=== PATIENT | female | born 1955 | race Caucasian/White ===

== ENCOUNTER → 2019-06-15 | Outpatient (CLI) | payer MEDICARE ==
[2019-06-17 15:07] LABS: HPV 16 Negative (Negative); HPV 18 Negative (Negative); HPV OTHER HR TYPES Negative (Negative)
== END | disposition home or self-care (01) ==
LOC: LAB SHORT 19:02 → LAB 19:02
PROVIDERS: Nurse Practitioner Women's Health
DX: Z12.72 Encounter for screening for malignant neoplasm of vagina (principal); Z91.89 Other specified personal risk factors, not elsewhere classified
CPT/HCPCS: 87624; G0123

== ENCOUNTER 2021-11-04 07:59 | Day surgery (SDC) | payer MEDICARE ==
[~2021-11-04] VITALS: Ht 165.1 cm; Wt 53.6 kg
[~2021-11-04 07:59] MED LIST: Doxycycline Hyc20 MG PO
--- NOTE | 2021-11-04 08:32 | NUR ---
Ambulatory in Day Surgery History, Chart, Medications and Allergies reviewed before start of procedure. Lungs clear T/O to Auscultation. Patient confirms NPO status and agrees with scheduled surgery. Pre-Op teaching done. Pt verbalizes understanding. Patient States Post-Procedure ride home has been arranged.
--- NOTE | 2021-11-04 08:54 | NUR ---
11/04/21 0854 Oumou Dodson History, Chart, Medications and Allergies reviewed before start of procedure. Patient confirms NPO status and agrees with scheduled surgery. 3-LEAD EKG REVIEWED WITH PHYSICIAN PRIOR TO START OF PROCEDURE. MONITOR INTACT WITH CONTINUOUS PULSE OXIMETRY AND INTERMITTENT BP. PATIENT DETERMINED TO BE ASA APPROPRIATE FOR PROPOFOL SEDATION PRIOR TO START OF PROCEDURE BY .
--- NOTE | 2021-11-04 09:57 | NUR ---
PT DISCUSSING FINDINGS WITH THIS RN. HAS GOOD RECOLLECTION OF WHAT MD TOLD HER AT END OF CASE.
--- NOTE | 2021-11-04 10:02 | NUR ---
REVIEWED DC INSTRUCTIONS WITH PT WHO VERBALIZES UNDERSTANDING OF ALL INSTRUCTIONS GIVEN. READY TO GO HOME. NO PAIN, NO NAUSEA.
--- NOTE | 2021-11-04 10:11 | NUR ---
PT DRESSING SELF. STOOD AT EDGE OF BED WITHOUT DIFFICULTY. VSS.
--- NOTE | 2021-11-04 10:11 | NUR ---
IV DC TIP INTACT
--- NOTE | 2021-11-04 10:15 | NUR ---
PT AMBULATED TO BR WITHOUT DIFFICULTY. DC HOME VIA WC WITH PARTNER TO DRIVE HER.
== END 2021-11-04 23:14 | disposition home or self-care (01) ==
LOC: ORSCMMR 07:59 → ORD 09:00 → ORSCMMR 09:00
PROVIDERS: Internal Medicine Gastroenterology
PROC: 0DJD8ZZ Inspection of Lower Intestinal Tract, Via Natural or Artificial Opening Endoscopic (ICD-10-PCS; principal; 2021-11-04 09:00)
DX: Z12.11 Encounter for screening for malignant neoplasm of colon (principal); Z79.899 Other long term (current) drug therapy
CPT/HCPCS: J2250; J2704; J7120

== ENCOUNTER → 2022-04-15 | Outpatient (CLI) | payer MEDICARE | END | disposition home or self-care (01) | LOC: LAB SHORT 12:32 | DX: A49.9 Bacterial infection, unspecified (principal); L23.9 Allergic contact dermatitis, unspecified cause | CPT/HCPCS: 87070; 87077; 87186; 87205 ==

== ENCOUNTER 2022-09-02 07:18 | Day surgery (SDC) | payer OTHER ==
[~2022-09-02] VITALS: Ht 167.6 cm; Wt 52.9 kg
--- NOTE | 2022-09-02 07:55 | NUR ---
09/02/22 0755 Irasema Hassan TETRACAINE PLACED AT 0749, PLEDGET PLACED AT 0750.
--- NOTE | 2022-09-02 08:50 | NUR ---
09/02/22 0813 Corina Sampson GENTAMYCIN AND VANCOMYCIN ADDED TO BSS USED FOR IRRIGATION. SURGEON AWARE OF PT'S ALLERGY TO NEOMYCIN.
== END 2022-09-02 09:20 | disposition home or self-care (01) ==
LOC: ORSCSDS 07:18
PROVIDERS: Ophthalmology
PROC: 08DJ3ZZ Extraction of Right Lens, Percutaneous Approach (ICD-10-PCS; principal; 2022-09-02 08:30)
DX: H25.11 Age-related nuclear cataract, right eye (principal); Z79.899 Other long term (current) drug therapy
CPT/HCPCS: J2001; J2250; J7040; V2632

== ENCOUNTER 2024-03-28 11:22 | Day surgery (SDC) | payer OTHER ==
[~2024-03-28] VITALS: Ht 167.6 cm; Wt 57.0 kg
[2024-03-28] MEDS ORDERED: [UNRECOGNIZED DRUG - OTHER] (12:15)
[2024-03-28] MEDS ORDERED: Selenomax200 MCG (12:15)
[2024-03-28] MEDS ORDERED: ASCO500 (12:16)
[2024-03-28] MEDS ORDERED: MUPIROCIN2210 (12:16)
[2024-03-28] MEDS ORDERED: THERA-D2000 UNIT (12:16)
[2024-03-28] MEDS ORDERED: Lidocaine HCl/Pf 1% 5 ML VIAL ONE (12:24)
[2024-03-28] MEDS ORDERED: CENTRUM SILVER1 EAC2 (12:31)
[2024-03-28] MEDS ORDERED: FISH OIL 1,0001 EA10 (12:31)
[2024-03-28] MEDS ORDERED: Lactated Ringer's 1,000 ML IV ONE ×2 (13:00→13:10)
[2024-03-28] MEDS ORDERED: propofoL 50 ML IV ONE ×2 (13:10→14:07)
[2024-03-28 15:03] VITALS: BP 107/84
== END 2024-03-28 15:00 | disposition home or self-care (01) ==
LOC: ORSCSDS 11:22
PROVIDERS: Internal Medicine Gastroenterology
PROC: 0DJD8ZZ Inspection of Lower Intestinal Tract, Via Natural or Artificial Opening Endoscopic (ICD-10-PCS; principal; 2024-03-28 12:30)
DX: Z12.11 Encounter for screening for malignant neoplasm of colon (principal); Z86.010 Personal history of colon polyps
CPT/HCPCS: J2001; J2704; J7120

== ENCOUNTER → 2025-07-10 | Outpatient (CLI) | payer OTHER ==
[~2025-07-10] MED LIST changes: +ASCO500; +CENTRUM SILVER1 EAC2; +FISH OIL 1,0001 EA10; +MUPIROCIN2210; +Selenomax200 MCG; +THERA-D2000 UNIT; +[UNRECOGNIZED DRUG - OTHER]
[2025-07-13 20:52] LABS: HSV SUBTYPE SOURCE Genital
== END | disposition home or self-care (01) ==
LOC: LAB 14:15 → LAB SHORT 14:15
PROVIDERS: General Practice
DX: D48.5 Neoplasm of uncertain behavior of skin (principal); L08.0 Pyoderma
CPT/HCPCS: 87529